=== PATIENT | female | born 2000 | race Two or more races ===

== ENCOUNTER → 2024-05-07 | Outpatient (CLI) | payer MEDICAID, SELFPAY ==
--- NOTE | 2024-05-07 10:30 | XR_ITS ---
Examination: Abdomen sonogram, complete Date and time of exam: May 07, 2024 1107 hours INDICATIONS: Diagnosis age One month ago. Technique: Multiple real-time grayscale transabdominal sonographic images of the abdomen have been obtained. Findings: Normal gallbladder Normal common bile duct 0.2 cm Pancreatic head 1.4 cm Aorta not enlarged Liver 15.4 cm fatty infiltration mildly irregular contour no focal liver lesions Normal hepatopedal portal venous flow Patent IVC Right kidney 10.2 x 3.1 x 4.3 cm cortex 1.6 cm Left kidney 11.0 x 3.0 x 4.1 cm cortex 1.8 cm Mild to moderate bilateral renal parenchymal scar formation No hydronephrosis Spleen 9.1 cm IMPRESSION: Normal gallbladder Fatty liver primary hepatocellular disease no focal liver lesions Mild to moderate bilateral renal parenchymal scar formation
== END | disposition home or self-care (01) ==
PROVIDERS: PCP Nurse Practitioner Family; Referring Provider Internal Medicine Gastroenterology; Visit Provider Internal Medicine Gastroenterology
DX: K76.0 Fatty (change of) liver, not elsewhere classified (principal); N28.89 Other specified disorders of kidney and ureter
CPT/HCPCS: 76700

== ENCOUNTER → 2024-06-28 | Outpatient (CLI) | payer MEDICAID, SELFPAY ==
--- NOTE | 2024-06-28 12:48 | XR_ITS ---
Examination: Ribs, bilateral, with PA chest, 4 views Technique: Chest PA, RIBS AP, RPO, LPO, Exam date and time: June 28, 2024 1327 hours INDICATIONS: Palpable lumps on the original flank pain beginning 6 months ago Findings: Normal heart size Lungs are clear. No pneumothorax. Old bone density No rib fractures or bony exostoses IMPRESSION: No active disease. No rib fractures or bony exostoses
== END | disposition home or self-care (01) ==
LOC: CDIM 12:30
PROVIDERS: PCP Nurse Practitioner Family; Referring Provider Nurse Practitioner Family; Visit Provider Nurse Practitioner Family
DX: R07.82 Intercostal pain (principal)
CPT/HCPCS: 71111

== ENCOUNTER → 2024-07-23 | Outpatient (CLI) | payer MEDICAID, SELFPAY ==
--- NOTE | 2024-07-23 09:30 | XR_ITS ---
Examination: Video esophagram Modified barium swallow 79 spot fluoroscopic films soft tissue lateral neck Exam date and time: July 23, 2024 10:32 AM INDICATIONS: Difficulty swallowing, chronic TECHNIQUE AND FINDINGS: Patient swallowed barium mixture is, thin barium, pudding barium, attempted cracker barium Poor oral control Premature transfer Pooling in the vallecular region Flash penetration with thin barium Fluoroscopy 0.1 minute, 79 spot fluoroscopic soft tissue lateral neck films radiation dose 28.54 milligray IMPRESSION: Poor oral control Premature transfer Pooling in the vallecular region Penetration with thin barium
--- NOTE | 2024-07-23 10:00 | XR_ITS ---
Examination: Esophagram standard 11 spot fluoroscopic films of the esophagus Fluoroscopy 0.3 minute radiation dose 8.34 milligray Exam date and time: July 23, 2024 1111 hours INDICATIONS: Chronic difficulty swallowing FINDINGS: Patient swallowed thin barium with 11 spot fluoroscopic films of the esophagus obtained Fluoroscopy 0.3 minute radiation dose 8.34 milligray Primary peristaltic esophageal waves noted Secondary and tertiary esophageal contractions identified Mild intermittent gastroesophageal reflux IMPRESSION: Esophageal dysmotility Mild intermittent gastroesophageal reflux No stricture at the gastroesophageal junction
== END | disposition home or self-care (01) ==
PROVIDERS: PCP Nurse Practitioner Family
DX: K21.9 Gastro-esophageal reflux disease without esophagitis (principal); K22.89 Other specified disease of esophagus; G23.0 Hallervorden-Spatz disease
CPT/HCPCS: 74220; 74230; A9270